=== PATIENT | female | born 1990 | race Caucasian/White ===

== ENCOUNTER 2017-03-19 18:20 | Emergency (ER) | payer OTHER ==
[~2017-03-19] VITALS: Ht 162.6 cm; Wt 96.4 kg
[~2017-03-19 18:20] MED LIST: IBUP-974 PO
[2017-03-19 18:24] VITALS: BP 145/75
--- NOTE | 2017-03-19 18:35 | NUR ---
PATIENT PRESENTS TO ED WITH c/o persistant hacking cough x 5 days;sob has taken two hhn at sister's house;unrelieved of sob;TOOK EXCEDRIN AT HOME;DENIES ANY MEDICAL HX;DENIES N/V/D; SKIN IS PINK/WARM/DRY; AAOX4 WITH EVEN AND STEADY GAIT; HR EVEN AND REGULAR;PATIENT POSITIONED FOR COMFORT; HOB ELEVATED; BEDRAILS UP X2; BED DOWN. ALL MONITORS IN PLACED;ER MD MADE AWARE OF PT STATUS.
[2017-03-19] MEDS ORDERED: ALBUTEROL SULFATE/IPRATROPIU 3 ML SOL IH ONE (18:45)
--- NOTE | 2017-03-19 18:47 | NUR ---
RT AT BEDSIDE.
--- NOTE | 2017-03-19 18:47 | NUR ---
Hemant rey in ED - 03/19/17 at 1847 by TAVON RTY AT BEDSIDE.
[2017-03-19] MEDS ORDERED: AZITHROMYCIN 250 MG TAB PO ONE (19:05)
[2017-03-19] MEDS ORDERED: methylPREDNISolone SS 125 MG/2 ML VIAL IM ONE (19:05)
--- NOTE | 2017-03-19 19:30 | NUR ---
pt in bed, no resp distress noted at this time, rr even and unlabored, pt states she "feels like i can breathe better", mother at bedside.
--- NOTE | 2017-03-19 20:00 | NUR ---
Patient discharged with v/s stable. Written and verbal after care instructions given and explained. Patient alert, oriented and verbalized understanding of instructions. Ambulatory with steady gait. All questions addressed prior to discharge. ID band removed. Patient advised to follow up with PMD. Rx of prednisone 20mg, albuterol 90mcg, azithromycin 250mg given. Patient educated on indication of medication including possible reaction and side effects. Opportunity to ask questions provided and answered.
[2017-03-19 20:04] VITALS: BP 118/67
== END 2017-03-19 20:00 | disposition home or self-care (01) ==
LOC: MED 18:20
DX: J40 Bronchitis, not specified as acute or chronic (principal); R06.2 Wheezing; J02.9 Acute pharyngitis, unspecified; J45.909 Unspecified asthma, uncomplicated; Z79.899 Other long term (current) drug therapy; Z88.1 Allergy status to other antibiotic agents
CPT/HCPCS: 96372; 99283; J2930; J7620; 94640